=== PATIENT | male | born 1985 | race Caucasian/White ===

== ENCOUNTER 2018-12-16 01:22 | Emergency (ER) | payer SELFPAY ==
[~2018-12-16] VITALS: Ht 180.3 cm; Wt 68.0 kg
[2018-12-16 01:26] VITALS: BP 161/103
[2018-12-16] MEDS ORDERED: NACL 0.9% 1,000 ML IV ONE ×2 (01:40→06:05)
--- NOTE | 2018-12-16 02:10 | NUR ---
33 Y/O MALE BIB EMS PRESENTS TO ED WITH C/O TORODOL USE WITH ETOH. PT STATES HAVING BACK PAIN AND TOOTH PAIN. TOOK TORODOL AT HOME AFTER DRINKING ALCOHOL BUT UNSURE AMOUNT HE TOOK. PT STATES NO INTENT TO HARM SELF. WAS TRYING TO SELF MEDICATE TO RELIEVE LOWER BACK AND TOOTH PAIN. REPORTED HR OF 166 ENROUT. UPON ED ADMISSION PT HAD HR OF 133. PT SPEECH MIDLY SLURRED. ALERT TO NAME, PLACE, TIME AND EVENT. NO C/O OF PAIN BUT STATES, "NOT FEELING RIGHT." AMBUTLATED FROM [facility] TO BED 12. ER MD AT [facility] FOR EVALUATION UPON ED ADMISSION. CONTNIUE TO MONITOR.
--- NOTE | 2018-12-16 02:10 | NUR ---
PT [facility] TO ER BED 12
[2018-12-16 02:33] LABS: BASOPHILS % (AUTO) 0.1 % (0.0-2.0); EOSINOPHILS % (AUTO) 0.1 % (0.0-4.0); HEMOGLOBIN 15.2 g/dL (12.0-18.0); LYMPHOCYTES # (AUTO) 1.2 K/uL (2.0-11.5); LYMPHOCYTES % (AUTO) 12.1 % (20.5-51.1); MEAN CORPUSCULAR HEMOGLOBIN 30 pg (27-31); MEAN CORPUSCULAR HGB CONC 34 g/dL (33-37); MEAN CORPUSCULAR VOLUME 89.2 fL (80-94); MONOCYTES # (AUTO) 0.6 K/uL (0.8-1.0); MONOCYTES % (AUTO) 6.8 % (1.7-9.3); NEUTROPHILS # (AUTO) 7.7 K/uL (1.8-7.7); NEUTROPHILS % (AUTO) 80.9 % (42.2-75.2); PLATELET COUNT (AUTO) 217 K/uL (140-450); RED BLOOD CELL COUNT(AUTO) 5.05 MIL/uL (4.20-6.10); RED CELL DISTRIBUTION WIDTH 13.3 % (11.6-13.7); WHITE BLOOD COUNT (AUTO) 9.5 K/uL (4.8-10.8)
[2018-12-16 02:45] LABS: ANION GAP 15.8 (8-16); CARBON DIOXIDE 26.6 mmol/L (21-32); CHLORIDE 104 mmol/L (98-107); CREATININE 0.7 mg/dL (0.7-1.3); GFR ARICAN-AMERICAN 165 mL/min (>90); GLUCOSE 90 mg/dL (74-106); POTASSIUM 3.4 mmol/L (3.5-5.1); SODIUM SERUM 143 mmol/L (136-145); UREA NITROGEN, BLOOD 11 mg/dL (7-18)
[2018-12-16 02:54] LABS: ASPARTATE AMINOTRANSFERASE 17 U/L (15-37); SALICYLATE < 2.8 mg/dL (2.8-20.0); TOTAL BILIRUBIN 0.5 mg/dL (0.0-1.0)
[2018-12-16 02:55] LABS: ACETAMINOPHEN < 0.5 ug/ml (10-30)
--- NOTE | 2018-12-16 03:00 | NUR ---
PT RESTING, EYES OPEN. NO C/O PAIN. NO DISTRESS OF ANY KIND CONTINUE TO MONITOR.
[2018-12-16 03:13] LABS: BARBITURATE, URINE NEG. ng/ml (NEG <=200); BENZODIAZEPINE, URINE NEG. ng/mL (NEG <=200); CANNABINOID, URINE POS. ng/mL (NEG <=50); COCAINE, URINE NEG. ng/mL (NEG <=300); OPIATE, URINE NEG. ng/mL (NEG <=2000); PHENCYCLIDINE SCREEN,URINE NEG. ng/mL (NEG <=25)
--- NOTE | 2018-12-16 04:00 | NUR ---
PT RESTING, EYES OPEN. NO C/O PAIN. NO DISTRESS OF ANY KIND CONTINUE TO MONITOR.
--- NOTE | 2018-12-16 06:18 | NUR ---
ORTHOSTATIC BP/PULSE TAKEN AT BEDSIDE.
--- NOTE | 2018-12-16 06:36 | NUR ---
PT RESTING, EYES OPEN. NO C/O PAIN. NO DISTRESS OF ANY KIND CONTINUE TO MONITOR.
--- NOTE | 2018-12-16 07:10 | NUR ---
ASSUMED CARE OF PT FROM [facility].
--- NOTE | 2018-12-16 08:16 | NUR ---
IV removed, catheter intact and site benign. Applied folded 4x4 gauze and tape to stop bleeding.
[2018-12-16 08:17] VITALS: BP 125/84
--- NOTE | 2018-12-16 08:17 | NUR ---
Patient discharged with v/s stable. Written and verbal after care instructions given and explained. Patient verbalized understanding. Ambulatory with steady gait. All questions addressed prior to discharge. Advised to follow up with PMD.
== END 2018-12-16 08:17 | disposition home or self-care (01) ==
LOC: MED 01:22
DX: R00.0 Tachycardia, unspecified (principal)
CPT/HCPCS: 36415; 80053; 80305; 84443; 85025; 93005; 99284; G0480; G0482; J7030